=== PATIENT | male | born 1965 | race Caucasian/White ===

== ENCOUNTER → 2018-08-22 14:33 | Outpatient (POV) | payer BC, SELFPAY ==
[2018-08-22 14:59] VITALS: BP 160/85; PULSE 66; RESP 18; O2SAT 98; BMI 28.8
--- NOTE | 2018-08-23 08:40 | HMH.PMCON ---
Assessment and Plan (1) Degenerative disc disease Current visit: Yes Status: Chronic Qualifiers: Spinal region: lumbar Qualified Code(s): M51.36 - Other intervertebral disc degeneration, lumbar region Category: Medical (2) Postlaminectomy syndrome Current visit: Yes Status: Chronic Category: Medical Code(s): M96.1 - Postlaminectomy syndrome, not elsewhere classified (3) Neuralgia Current visit: Yes Status: Chronic Category: Medical Code(s): M79.2 - Neuralgia and neuritis, unspecified - Assessment and plan all Dx Assessment and Plan for all problems:: We did discuss neuro stimulation I do believe it would be beneficial for him. At this time we will not be prescribing narcotics. We did discuss low-dose gabapentin for his intercostal pain. We will start him on gabapentin 100 mg at night time for 1 month. Patient was given information in regards to neuro stimulation and is good to call us if he is interested. Dr. Smith has reviewed this note and agrees with this plan of care. This note was dictated using voice recognition software and may contain errors or omissions HPI - Data of Consult Consult date: 08/23/18 Requesting Physician: Faye Calhoun APRN Primary Care Provider: Evangelist Oliva - Consult Narrative Reason for consult: Back pain, neck pain, shoulder pain, left chest wall pain History of present illness: Mr. Hager is a 53 year old male who presents today for consultation in regards to his back pain, bilateral shoulder pain, left chest wall pain. Patient had left chest wall pain appear after heart cath. It is nervelike in nature he states that the burning. Patient is also had surgery on his neck. Patient has had multiple injections including epidurals and facet joint injections with not much relief. Patient used to be on [place] however he is no longer on this and states that it was beneficial we discussed how it is not a long-term solution for his pain. We did discuss a neurostimulator. Rates his pain today a 8 out of 10. He has numbness and tingling in all extremities. He is tried and failed surgery, medications, massage therapy, injections, physical therapy. CC: Faye Calhoun APRN [facility] History I have reviewed the patient's past medical history: Yes Medical History: Reports:: Diabetes Mellitus Type 2, Heart Murmur, Hyperlipidemia, Hypertension, Palpitations *Have you ever received a pneumonia vaccine?: No *Have you received a flu vaccine this season?: No Other Medical History: Reports: Arthritis Laterality Cases: Right: Other Other Surgeries: Yes: Sinus Surgery Amputation: No Fractures: No - *Social History Smoking Status: Never smoker Alcohol Intake: never *Occupational Status:: other Housing: house Household Members: spouse *Travel in the last 8 weeks: None Family Hx:: Unable to obtain Review of Systems - Review of Systems ROS General: no recent weight change, no fever, no sleep disturbances Respiratory: no cough, no shortness of air, no recurring pulmonary infections Cardiovascular/Peripheral Vascular: No chest pain, No palpitations, no edema, no shortness of breath. Gastrointestinal: no incontinence, normal bowel movements reported Genitourinary: no incontinence Musculoskeletal: Neck pain, back pain, shoulder pain, left chest wall pain Psychiatric: normal mood/ affect Neurological: [denies weakness in extremities], [denies balance issues] Meds Home Medications Medication Instructions Recorded Confirmed Type Aspirin 81 mg PO DAILY 08/22/18 08/22/18 History Cyclobenzaprine HCl [Flexeril 10mg 10 mg PO DAILY 08/22/18 08/22/18 History tablet] Esomeprazole Magnesium [Nexium] 40 mg PO HS 08/22/18 08/22/18 History Losartan/Hydrochlorothiazide 100 mg PO DAILY 08/22/18 08/22/18 History [Losartan-Hctz 100-25 mg Tab] Metoprolol Tartrate [Lopressor 25 mg PO DAILY 08/22/18 08/22/18 History 25mg tablet] Mirtazapine [Remeron 15mg ta
--- NOTE | 2018-08-23 08:44 | P.CONS_ITS ---
Assessment and Plan (1) Degenerative disc disease Current visit: Yes Status: Chronic Qualifiers: Spinal region: lumbar Qualified Code(s): M51.36 - Other intervertebral disc degeneration, lumbar region Category: Medical (2) Postlaminectomy syndrome Current visit: Yes Status: Chronic Category: Medical Code(s): M96.1 - Postlaminectomy syndrome, not elsewhere classified (3) Neuralgia Current visit: Yes Status: Chronic Category: Medical Code(s): M79.2 - Neuralgia and neuritis, unspecified - Assessment and plan all Dx Assessment and Plan for all problems:: We did discuss neuro stimulation I do believe it would be beneficial for him. At this time we will not be prescribing narcotics. We did discuss low-dose gabapentin for his intercostal pain. We will start him on gabapentin 100 mg at night time for 1 month. Patient was given information in regards to neuro stimulation and is good to call us if he is interested. Dr. Smith has reviewed this note and agrees with this plan of care. This note was dictated using voice recognition software and may contain errors or omissions HPI - Data of Consult Consult date: 08/23/18 Requesting Physician: Faye Calhoun APRN Primary Care Provider: Evangelist Oliva - Consult Narrative Reason for consult: Back pain, neck pain, shoulder pain, left chest wall pain History of present illness: Mr. Hager is a 53 year old male who presents today for consultation in regards to his back pain, bilateral shoulder pain, left chest wall pain. Patient had left chest wall pain appear after heart cath. It is nervelike in nature he states that the burning. Patient is also had surgery on his neck. Patient has had multiple injections including epidurals and facet joint injections with not much relief. Patient used to be on [place] however he is no longer on this and states that it was beneficial we discussed how it is not a long-term solution for his pain. We did discuss a neurostimulator. Rates his pain today a 8 out of 10. He has numbness and tingling in all extremities. He is tried and failed surgery, medications, massage therapy, injections, physical therapy. CC: Faye Calhoun APRN [facility] History I have reviewed the patient's past medical history: Yes Medical History: Reports:: Diabetes Mellitus Type 2, Heart Murmur, Hyper lipidemia, Hypertension, Palpitations *Have you ever received a pneumonia vaccine?: No *Have you received a flu vaccine this season?: No Other Medical History: Reports: Arthritis Laterality Cases: Right: Other Other Surgeries: Yes: Sinus Surgery Amputation: No Fractures: No - *Social History Smoking Status: Never smoker Alcohol Intake: never *Occupational Status:: other Housing: house Household Members: spouse *Travel in the last 8 weeks: None Family Hx:: Unable to obtain Review of Systems - Review of Systems ROS General: no recent weight change, no fever, no sleep disturbances Respiratory: no cough, no shortness of air, no recurring pulmonary infections Cardiovascular/Peripheral Vascular: No chest pain, No palpitations, no edema, no shortness of breath. Gastrointestinal: no incontinence, normal bowel movements reported Genitourinary: no incontinence Musculoskeletal: Neck pain, back pain, shoulder pain, left chest wall pain Psychiatric: normal mood/ affect Neurological: [denies weakness in extremities], [denies balance issues] Meds Home Medications Medication Instructions Recorded Confirmed
== END ==
PROVIDERS: PCP Family Medicine; Visit Provider Clinical Nurse Specialist Family Health
DX: M51.36 Other intervertebral disc degeneration, lumbar region (principal); M96.1 Postlaminectomy syndrome, not elsewhere classified; M79.2 Neuralgia and neuritis, unspecified
CPT/HCPCS: 99202